=== PATIENT | male | born 1965 | race American Indian/Alaskan Native ===

== ENCOUNTER 2017-04-24 13:51 | Emergency (ER) | payer MEDICAID ==
[2017-04-24 14:40] VITALS: BP 137/84; PULSE 74; RESP 18; TEMP 98.9; O2SAT 98
[2017-04-24] MEDS ORDERED: Naproxen 550 mg Tab PO STA (14:59)
--- NOTE | 2017-04-24 15:04 | C.PDOC ---
History Of Present Illness Pt c/o left ear pain Time Seen by Provider: 04/24/17 14:43 Chief Complaint (Nursing): ENT Problem History Per: Patient Onset/Duration Of Symptoms: Days (4) Current Symptoms Are (Timing): Still Present Quality (Ear): Pain W/Touch Severity: Moderate Past Medical History Reviewed: Historical Data, Nursing Documentation, Vital Signs Vital Signs: Last Vital Signs Temp 98.9 F 04/24/17 14:37 Pulse 74 04/24/17 14:37 Resp 18 04/24/17 14:37 BP 137/84 04/24/17 14:37 Pulse Ox 98 04/24/17 14:37 - Medical History PMH: Back Problems Family History: States: Unknown Family Hx - Social History Hx Tobacco Use: Yes Hx Alcohol Use: Yes Hx Substance Use: Yes (LAST USED 0500) - Immunization History Hx Tetanus Toxoid Vaccination: No Hx Influenza Vaccination: No Hx Pneumococcal Vaccination: No Review Of Systems Except As Marked, All Systems Reviewed And Found Negative. Constitutional: Negative for: Fever ENT: Positive for: Ear Pain (left). Negative for: Ear Discharge, Nose Congestion, Throat Pain Cardiovascular: Negative for: Chest Pain Respiratory: Positive for: Cough (chronic). Negative for: Shortness of Breath, Hemoptysis Gastrointestinal: Negative for: Vomiting, Abdominal Pain, Diarrhea Genitourinary: Negative for: Dysuria Musculoskeletal: Positive for: Back Pain (low, chronic). Negative for: Neck Pain Skin: Negative for: Rash Neurological: Negative for: Weakness, Numbness, Headache Physical Exam - Physical Exam Appears: Non-toxic, No Acute Distress Skin: Normal Color, Warm, Dry, No Rash Head: Atraumatic, Normacephalic Eye(s): bilateral: Normal Inspection, PERRL, EOMI Ear(s): Left: TM Obscured By Wax, Other (Inflamation of ear canal. Tenderness of tragus.), Right: Normal Oral Mucosa: Moist, No Drooling, No Trismus Throat: Normal Neck: Normal ROM, Supple Lymphatic: No Adenopathy Cardiovascular: Rhythm Regular Respiratory: Normal Breath Sounds, No Accessory Muscle Use Gastrointestinal/Abdominal: Soft, No Tenderness Back: No CVA Tenderness Extremity: Normal ROM, No Pedal Edema, No Calf Tenderness Neurological/Psych: Oriented x3, Normal Speech, Normal Cognition, Normal Cranial Nerves, Normal Motor, Normal Sensation ED Course And Treatment O2 Sat by Pulse Oximetry: 98 Pulse Ox Interpretation: Normal Disposition Counseled Patient/Family Regarding: Diagnosis, Need For Followup, Rx Given, Smoking Cessation - Disposition Referrals: Francesco Tai MD [Staff Provider] - Disposition: HOME/ ROUTINE Disposition Time: 15:04 Condition: STABLE Additional Instructions: Stop smoking. Follow up with the ENT specialist within 1 week for further evaluation and treatment. Return to the ER if you develop fever, shortness of breath, worsening of symptoms or if you have any other concerns. Prescriptions: Naproxen [Naprosyn] 1 tab PO BID PRN #20 tab PRN Reason: Pain Neomycin/Polymyxin B/Hydrocort [Nmceruoy-Stwrlhzmu-Ci Ear Susp] 5 drop OT QID # 1 drops.susp Instructions: Otitis Externa (ED) Forms: Work Excuse - Clinical Impression Clinical Impression: Otitis externa of left ear
[2017-04-24] MEDS ORDERED: Naproxen 550 mg Tab PO ONE (15:06)
== END 2017-04-24 15:37 | disposition home or self-care (01) ==
LOC: C.ER 13:51
DX: H60.92 Unspecified otitis externa, left ear (principal)

== ENCOUNTER 2017-12-11 11:47 | Emergency (ER) | payer MEDICAID ==
[2017-12-11] MEDS ORDERED: Bacitracin 500 Units/gm Oint Foilpak UD TOP ONE (12:09)
[2017-12-11] MEDS ORDERED: Bacitracin 500 Units/gm Oint Foilpak UD ONE (12:17)
--- NOTE | 2017-12-11 12:18 | C.PDOC ---
History Of Present Illness 52-year-old male brought in by ambulance for evaluation of head injury status- post fall 2 days ago. Patient reports he tripped and fell at home, hitting his right forehead and right eye and sustaining abrasions to the head, left wrist, and left lower leg. He admits to drinking alcohol prior to fall, and denies LOC. Now he complains of neck pain, worsening with head rotation, as well as swelling to the right eye. Patient also reports a history of chronic back pain, for which he takes Oxycodone 30mg QID, but cannot recall name of his doctor. He otherwise denies any extremity weakness, numbness, tingling, visual changes, chest pain, SOB, or dizziness. - HPI Time Seen by Provider: 12/11/17 11:53 Chief Complaint (Nursing): Trauma History Per: Patient History/Exam Limitations: no limitations Injury Occurred (Timing): Days Ago: (2) Location Of Injury: Right: Head, Posterior: Neck Past Medical History Reviewed: Historical Data, Nursing Documentation, Vital Signs Vital Signs: Last Vital Signs Temp 98.6 F 12/11/17 12:05 Pulse 78 12/11/17 12:05 Resp 18 12/11/17 12:05 BP 149/92 H 12/11/17 12:05 Pulse Ox 97 12/11/17 13:57 - Medical History PMH: Back Problems Surgical History: Hernia Repair Family History: States: Unknown Family Hx - Social History Hx Tobacco Use: Yes Hx Alcohol Use: Yes Hx Substance Use: Yes (LAST USED 0500) - Immunization History Hx Tetanus Toxoid Vaccination: No Hx Influenza Vaccination: No Hx Pneumococcal Vaccination: No Review Of Systems Except As Marked, All Systems Reviewed And Found Negative. Eyes: Positive for: Other (Periorbital swelling/eye trauma). Negative for: Vision Change Cardiovascular: Negative for: Chest Pain Respiratory: Negative for: Shortness of Breath Musculoskeletal: Positive for: Neck Pain Skin: Positive for: Lesions (abrasions to left wrist, left lower leg, and right forehead) Neurological: Negative for: Weakness, Numbness, Incoordination, Headache, Dizziness Physical Exam - Physical Exam Appears: Well, Non-toxic, No Acute Distress Skin: Warm, Dry Head: Normacephalic, No Swelling (or hematoma), Abrasion (5x4 cm irregular abrasion across the right forehead) Eye(s): bilateral: PERRL, EOMI, right: Other (Periorbital swelling and ecchymosis to the right eye) Oral Mucosa: Moist Neck: Normal ROM, No Midline Cervical Tenderness, Paracervical Tenderness (to bilateral paracervical regions), No Step Off Deformity Chest: Symmetrical Cardiovascular: Rhythm Regular, No Murmur Respiratory: Normal Breath Sounds, No Rales, No Rhonchi, No Wheezing Gastrointestinal/Abdominal: Soft, No Tenderness, No Distention Extremity: Normal ROM, No Deformity, No Swelling, Other (Small abrasions noted to left wrist and anterior left lower leg) Pulses: Left Dorsalis Pedis: Normal, Right Dorsalis Pedis: Normal Neurological/Psych: Oriented x3, Normal Speech, Normal Cranial Nerves ED Course And Treatment O2 Sat by Pulse Oximetry: 97 (room air) Pulse Ox Interpretation: Normal - Other Rad X-Ray C-Spine X-Ray: Interpreted by Me, Viewed By Me Interpretation: Straightening of the cervical curvature, with no acute fracture or listhesis. - CT Scan/US Head CT Other Rad Studies (CT/US): Read By Radiologist, Radiology Report Reviewed CT/US Interpretation: Accession No. : [id number]. Patient Name / ID : SANTHOSH ENGLE / [id number]. Exam Date : 12/11/2017 12:58:02 ( Approved ). Study Comment : Sex / Age : M / 52Y. Creator : Candice Galeas. Dictator : Yoav Bishop MD. Curing Finisher : Web Specialist : Yoav Bishop MD. Approver2 : Report Date : 12/11/2017 13:04:09. My Comment : . Date of service: 12/11/2017. PROCEDURE: CT HEAD WITHOUT CONTRAST. HISTORY: CRUZ s.p fall 2 days ago. COMPARISON: None available. TECHNIQUE: Axial computed tomography images were obtained through the head/brain without intravenous contrast. Radiation dose: Total exam DLP = 790.42 mGy-cm. This CT exam was performed using one or more of the following dose reduction techniques: Automated exposure control, adjustment of the mA and/or kV according to patient size, and/or use of iterative reconstruction technique. FINDINGS: HEMORRHAGE: No intracranial hemorrhage. BRAIN: No mass effect or edema. No atrophy or chronic microvascular ischemic changes. VENTRICLES: Unremarkable. No hydrocephalus. CALVARIUM: Unremarkable. PARANASAL SINUSES: Mild chronic ethmoid and sphenoid sinusitis. MASTOID AIR CELLS: Unremarkable as visualized. No inflammatory changes. OTHER FINDINGS: None. IMPRESSION: No intracranial hemorrhage. Mild chronic paranasal sinusitis. Otherwise unremarkable examination. Maxillofacial CT Other Rad Studies (CT/US): Read By Radiologist, Radiology Report Reviewed CT/US Interpretation: Accession No. : [id number]. Patient Name / ID : SANTHOSH ENGLE / [id number]. Exam Date : 12/11/2017 13:00:09 ( Approved ). Study Comment : Sex / Age : M / 52Y. Creator : Candice Galeas. Dictator : Yoav Bishop MD. Curing Finisher : Web Specialist : Yoav Bishop MD. Approver2 : Report Date : 12/11/2017 13:06:06. My Comment : . Date of service: 12/11/2017. PROCEDURE: CT MAXILLOFACIAL BONES WITHOUT CONTRAST. HISTORY: right facial swelling s.p fall 2 days ago. COMPARISON: None. TECHNIQUE: Contiguous axial CT images of the maxillofacial bones were obtained. Coronal and sagittal reformats were generated. Radiation dose: Total exam DLP = 767.92 mGy-cm. This CT exam was performed using one or more of the following dose reduction techniques: Automated exposure control, adjustment of the mA and/or kV according to patient size, and/or use of iterative reconstruction technique. FINDINGS: NASAL BONES: No fracture. Please note that there is a tiny radiopaque foreign body in the subcutaneous soft tissue or within the dermal layer at the left superior aspect of the nose. Uncertain significance. This could represent a cutaneous calcification. ORBITS : Unremarkable. PARANASAL SINUSES/ MASTOIDS: Mild chronic ethmoid and sphenoid sinusitis. MAXILLA: Unremarkable. MANDIBLE/ TEMPOROMANDIBULAR JOINTS : Unremarkable. SKULL BASE: Unremarkable. TEMPORAL BONES: Middle ears and mastoid grossly unremarkable. OTHER FINDINGS: None. IMPRESSION: No evidence of facial fracture. Mild chronic ethmoid and sphenoid sinusitis. Medical Decision Making Medical Decision Making: Impression: Head injury s/p fall Time: 12:08 Initial Plan: * X-Ray C-spine * Maxillofacial CT * Head CT * Bacitracin applied to abrasions Progress, Reassess and Dispo: Counseled patient regarding all diagnostic results, provided with copies of CT reports. Patient remained afebrile alert and oriented with stable vital signs during ER evaluation. On re-examination, patient is resting comfortably in no acute distress. Patient feels comfortable going home and will be discharged. Patient given follow up instructions. Instructed to return to ER if symptoms worsen or new symptoms arise. Disposition Counseled Patient/Family Regarding: Diagnosis, Need For Followup - Disposition Referrals: [facility] [Outside] [facility] [Outside] Disposition: HOME/ ROUTINE Disposition Time: 13:57 Condition: STABLE Additional Instructions: Apply antibiotic ointment to abrasions 1-2 times a day Take Tylenol or Advil for any pain Follow up with your doctor or clinic Instructions: Skin Abrasions, Contusion (DC) Forms: [facility] (Kiswahili), Work Excuse - POA Present On Arrival: Falls Or Trauma (2 days ago) - Clinical Impression Clinical Impression: Neck muscle strain, Facial contusion, Abrasion of face - PA / HYDRAULIC JACK ADJUSTER / Resident Statement MD/DO has reviewed & agrees with the documentation as recorded. - Scribe Statement The provider has reviewed the documentation as recorded by the Scribe (Patricia Omalley) All medical record entries made by the Scribe were at my direction and personally dictated by me. I have reviewed the chart and agree that the record accurately reflects my personal performance of the history, physical exam, medical decision making, and the department course for this patient. I have also personally directed, reviewed, and agree with the discharge instructions and disposition.
--- NOTE | 2017-12-11 13:19 | CT ---
Date of service: 12/11/2017 PROCEDURE: CT HEAD WITHOUT CONTRAST. HISTORY: CRUZ s.p fall 2 days ago COMPARISON: None available. TECHNIQUE: Axial computed tomography images were obtained through the head/brain without intravenous contrast. Radiation dose: Total exam DLP = 790.42 mGy-cm. This CT exam was performed using one or more of the following dose reduction techniques: Automated exposure control, adjustment of the mA and/or kV according to patient size, and/or use of iterative reconstruction technique. FINDINGS: HEMORRHAGE: No intracranial hemorrhage. BRAIN: No mass effect or edema. No atrophy or chronic microvascular ischemic changes. VENTRICLES: Unremarkable. No hydrocephalus. CALVARIUM: Unremarkable. PARANASAL SINUSES: Mild chronic ethmoid and sphenoid sinusitis. MASTOID AIR CELLS: Unremarkable as visualized. No inflammatory changes. OTHER FINDINGS: None. IMPRESSION: No intracranial hemorrhage. Mild chronic paranasal sinusitis. Otherwise unremarkable examination.
--- NOTE | 2017-12-11 13:46 | CT ---
Date of service: 12/11/2017 PROCEDURE: CT MAXILLOFACIAL BONES WITHOUT CONTRAST HISTORY: right facial swelling s.p fall 2 days ago COMPARISON: None TECHNIQUE: Contiguous axial CT images of the maxillofacial bones were obtained. Coronal and sagittal reformats were generated. Radiation dose: Total exam DLP = 767.92 mGy-cm. This CT exam was performed using one or more of the following dose reduction techniques: Automated exposure control, adjustment of the mA and/or kV according to patient size, and/or use of iterative reconstruction technique. FINDINGS: NASAL BONES: No fracture. Please note that there is a tiny radiopaque foreign body in the subcutaneous soft tissue or within the dermal layer at the left superior aspect of the nose. Uncertain significance. This could represent a cutaneous calcification. ORBITS: Unremarkable. PARANASAL SINUSES/ MASTOIDS: Mild chronic ethmoid and sphenoid sinusitis. MAXILLA: Unremarkable. MANDIBLE/ TEMPOROMANDIBULAR JOINTS: Unremarkable. SKULL BASE: Unremarkable. TEMPORAL BONES: Middle ears and mastoid grossly unremarkable. OTHER FINDINGS: None. IMPRESSION: No evidence of facial fracture. Mild chronic ethmoid and sphenoid sinusitis.
[2017-12-11 14:11] VITALS: BP 152/96; PULSE 77; RESP 20; TEMP 97.9
--- NOTE | 2017-12-11 15:13 | RAD ---
Date of service: 12/11/2017 PROCEDURE: Cervical Spine Radiographs. HISTORY: Pain. COMPARISON: None. FINDINGS: BONES: The distal tip of the odontoid partially obscured by overlying occiput in the open-mouth projection though is barely visible in the extended darby view. No evidence of acute compression fractures no retropulsed fragments. Vertebral bodies exhibit relatively normal stature. There is straightening of the normal cervical lordosis of which could be secondary to patient positioning or spasm. Clinical correlation recommended DISC SPACES: Moderate to fairly significant multilevel degenerative spondylosis. Changes include varying degrees of disc space narrowing, endplate eburnation with moderate sized anterior and smaller posterior osteophyte formation. Minor hypertrophic uncovertebral and facet joints. SOFT TISSUES: Normal. No prevertebral soft tissue swelling. OTHER FINDINGS: None. IMPRESSION: No acute fractures within limitation of the study as above. Multilevel degenerative spondylosis as described
[2017-12-11 16:40] VITALS: O2SAT 97
== END 2017-12-11 14:24 | disposition home or self-care (01) ==
LOC: C.ER 11:47
DX: S16.1XXA Strain of muscle, fascia and tendon at neck level, initial encounter (principal); S05.11XA Contusion of eyeball and orbital tissues, right eye, initial encounter; S00.81XA Abrasion of other part of head, initial encounter; S60.812A Abrasion of left wrist, initial encounter; S80.812A Abrasion, left lower leg, initial encounter; W01.0XXA Fall on same level from slipping, tripping and stumbling without subsequent striking against object, initial encounter; Y92.009 Unspecified place in unspecified non-institutional (private) residence as the place of occurrence of the external cause

== ENCOUNTER 2018-03-21 14:23 | Emergency (ER) | payer OTHER ==
[2018-03-21 14:33] VITALS: BP 129/81; PULSE 95; RESP 18; TEMP 98.8; O2SAT 96
--- NOTE | 2018-03-21 15:22 | C.PDOC ---
History Of Present Illness 52 y/o male presents to the ED for evaluation of possible foreign body in the right ear. States he was cleaning the ear with a wooden q-tip and upon removing it, he felt that part of the q-tip had broken and was inside his ear. Otherwise he denies any change in hearing, fever, discharge or other associated symptoms. Time Seen by Provider: 03/21/18 14:43 Chief Complaint (Nursing): ENT Problem History Per: Patient History/Exam Limitations: None Onset/Duration Of Symptoms: Mins Current Symptoms Are (Timing): Still Present Quality (Ear): Foreign Body Past Medical History Reviewed: Historical Data, Nursing Documentation, Vital Signs Vital Signs: Last Vital Signs Temp 98.8 F 03/21/18 14:29 Pulse 95 H 03/21/18 14:29 Resp 18 03/21/18 14:29 BP 129/81 03/21/18 14:29 Pulse Ox 96 03/21/18 14:29 - Medical History PMH: Back Problems Surgical History: Hernia Repair Family History: States: Unknown Family Hx - Social History Hx Tobacco Use: Yes Hx Alcohol Use: Yes Hx Substance Use: Yes (denies) - Immunization History Hx Tetanus Toxoid Vaccination: No Hx Influenza Vaccination: No Hx Pneumococcal Vaccination: No Review Of Systems Except As Marked, All Systems Reviewed And Found Negative. Constitutional: Negative for: Fever, Chills ENT: Positive for: Other (foreign body sensation to right ear). Negative for: Ear Pain, Ear Discharge Neurological: Negative for: Headache, Dizziness Physical Exam - Physical Exam Appears: Non-toxic, No Acute Distress Skin: Normal Color, Warm, Dry Head: Atraumatic, Normacephalic Eye(s): bilateral: Normal Inspection Ear(s): Right: Other (no foreign body), Bilateral: Normal (no erythema) Oral Mucosa: Moist Neck: Normal ROM Neurological/Psych: Oriented x3, Normal Speech Gait: Steady ED Course And Treatment O2 Sat by Pulse Oximetry: 96 (RA) Pulse Ox Interpretation: Normal Progress Note: Reassured patient that no foreign body is present on exam. Patient is medically stable for d/c home. Disposition - Disposition Disposition: HOME/ ROUTINE Disposition Time: 15:19 Condition: STABLE Additional Instructions: Follow up with PMD/Clinic within 1-2 days. Return to ED if feel worse. Forms: [employer] (Togolese), Work Excuse - Clinical Impression Clinical Impression: Foreign body sensation in right ear canal - PA / ENERGY PROJECTS LEAD / Resident Statement MD/DO has reviewed & agrees with the documentation as recorded. - Scribe Statement The provider has reviewed the documentation as recorded by the Scribe (Patricia Omalley) All medical record entries made by the Scribe were at my direction and personally dictated by me. I have reviewed the chart and agree that the record accurately reflects my personal performance of the history, physical exam, medical decision making, and the department course for this patient. I have also personally directed, reviewed, and agree with the discharge instructions and disposition.
== END 2018-03-21 15:33 | disposition home or self-care (01) ==
LOC: C.ER 14:23
DX: H61.891 Other specified disorders of right external ear (principal)